=== PATIENT | male | born 1955 | race Caucasian/White ===

== ENCOUNTER 2021-10-25 11:14 | Emergency (ER) | payer OTHER ==
[2021-10-25 11:47] VITALS: BP 162/69; RESP 17; TEMP 98.1; BMI 23.3
[2021-10-25 14:11] VITALS: PULSE 85
== END 2021-10-25 14:11 | disposition home or self-care (01) ==
LOC: JER 11:14
DX: U07.1 COVID-19 (principal)
CPT/HCPCS: 0241U-QW; 71046-TC-FY; 99284-25

== ENCOUNTER 2021-11-14 20:20 | Emergency (ER) | payer OTHER ==
[2021-11-14 20:45] VITALS: BMI 29.9
[2021-11-14] MEDS ORDERED: ACETAMINOPHEN 500 MG TABLET (FP) PO ONE (21:47)
[2021-11-14] MEDS ORDERED: ACETAMINOPHEN 325 MG TABLET (FP) ONE (21:59)
[2021-11-14 22:20] LABS: BASO % 0.9 % (0-2.0); EOS % 3.7 % (0-4.5); HEMATOCRIT 38.3 % (35.4-49); HEMOGLOBIN 13.1 GM/dL (11.7-16.9); LYMPH % 32.3 % (8-40); MCHC 34.4 g/dl (32.0-35.9); MEAN PLT VOLUME 9.6 fl (7.5-11.1); MONO % 7.6 % (3.8-10.2); NEUT % 55.5 % (42.8-82.8); PLATELET COUNT 200 10^3/uL (134-434); RBC 4.11 M/mm3 (4.00-5.60); RDW 14.4 % (11.9-15.9); WHITE BLOOD COUNT 8.3 K/mm3 (4.0-10.0)
[2021-11-14 22:27] LABS: INR 0.95 (0.83-1.09); PROTHROMBIN TIME (PATIENT) 10.9 SEC (9.7-13.0)
[2021-11-14 22:30] LABS: ACTIVATED PTT 30.2 SECONDS (25.2-36.5)
[2021-11-14] MEDS ORDERED: METOCLOPRAMIDE HCL INJECTION 10 MG/2 ML VIAL IVPUSH ONE (22:34)
[2021-11-14] MEDS ORDERED: METOCLOPRAMIDE HCL INJECTION 10 MG/2 ML VIAL ONE (22:41)
[2021-11-14 22:42] LABS: ALBUMIN 3.5 g/dl (3.4-5.0); CALCIUM 8.6 mg/dL (8.5-10.1)
[2021-11-14 22:43] LABS: BLOOD UREA NITROGEN 15.5 mg/dL (7-18)
[2021-11-14 22:45] LABS: CREATININE 1.1 mg/dL (0.55-1.3)
[2021-11-14 22:47] LABS: BILIRUBIN,TOTAL 0.2 mg/dL (0.2-1); TOT PROT 6.4 g/dl (6.4-8.2)
[2021-11-15 00:06] VITALS: BP 163/74; PULSE 54; RESP 16; TEMP 98.2
== END 2021-11-15 02:55 | disposition home or self-care (01) ==
LOC: JER 20:20
PROC: 3E033NZ Introduction of Analgesics, Hypnotics, Sedatives into Peripheral Vein, Percutaneous Approach (ICD-10-PCS; principal; 2021-11-14)
DX: R51.9 Headache, unspecified (principal)
CPT/HCPCS: 0241U-QW; 36415; 70450-TC; 71045-TC-FY; 80053; 84484; 85025; 85610; 85730; 93005; 93010; 99285-25